=== PATIENT | female | born 1960 | race Caucasian/White ===

== ENCOUNTER → 2017-12-17 | Outpatient (CLI) | payer BC ==
--- NOTE | 2017-12-17 16:50 | RADIOLOGY REPORT (SQ) ---
EXAM DESCRIPTION: VENOUS UNILATERAL UPPER COMPLETED DATE/TIME: 12/17/2017 4:39 pm REASON FOR STUDY: RUE SWELLING R60.9 EDEMA, UNSPECIFIED COMPARISON: None. TECHNIQUE: Dynamic and static harper scale and color images acquired of the right arm venous system. S elected spectral images acquired with additional compression and augmentation maneuvers. The contrala teral subclavian vein and internal jugular vein were also imaged. Images stored on PACS. LIMITATIONS: None. FINDINGS: INTERNAL JUGULAR VEIN: Normal phasicity, compression, augmentation. No visualized echogeni c material on harper scale. No defects on color images. Comparison opposite side normal. SUBCLAVIAN VEIN: Normal compression, augmentation. No visualized echogenic material on harper scale. No defects on color images. AXILLARY VEIN: Normal compression, augmentation. No visualized echogenic material on harper scale. No d efects on color images. BRACHIAL VEIN: Normal compression, augmentation. No visualized echogenic material on harper scale. No d efects on color images. BASILIC VEIN: Normal compression, augmentation. No visualized echogenic material on harper scale. No de fects on color images. CEPHALIC VEIN: Normal compression, augmentation. No visualized echogenic material on harper scale. No d efects on color images. OTHER: No other significant finding. CONTRALATERAL SUBCLAVIAN VEIN AND INTERNAL JUGULAR VEIN: Not imaged IMPRESSION: NO EVIDENCE DVT OR SVT RIGHT ARM. TECHNICAL DOCUMENTATION: JOB ID: [id number]- [id number] Rights Reserved Reading location - IP/workstation name: [email or web address]
== END ==
LOC: SP 15:29
PROVIDERS: ATTEND Physician Assistant
DX: R60.0 Localized edema (principal)
CPT/HCPCS: 93971